=== PATIENT | female | born 1990 | race American Indian/Alaskan Native ===

== ENCOUNTER 2021-01-15 10:42 | Emergency (ER) | payer SELFPAY ==
--- NOTE | 2021-01-15 11:38 | Emergency Department Report ---
ED Female HPI - General Chief complaint: Urogenital-Female Stated complaint: VAGINAL RASH Time Seen by Provider: 01/15/21 11:31 Source: patient Mode of arrival: Ambulatory Limitations: No Limitations - History of Present Illness Initial comments: 30-year-old female presents to ED with vaginal discomfort x1 month. Patient reports some intermittent thick white discharge, intermittent itching intermittent swelling. Patient denies any swelling at this time. She also reports intermittent discomfort with urination over the last month as well. She denies any abdominal pain. Patient states she used [id number] medication for yeast infection. Patient thinks she may have bacterial vaginosis. States it is similar to when she was previously diagnosed with it. MD Complaint: other -: month(s) (1) Severity: mild Consistency: intermittent Improves with: none Worsens with: none Are you Now?: No Associated Symptoms: vaginal discharge. denies: vaginal bleeding, abdominal pain, nausea/vomiting, fever/chills - Related Data Sexually active: Yes Previous Rx's Medication Instructions Recorded Last Taken Type Fluconazole [Diflucan TAB] 150 mg PO ONCE #1 tablet 01/15/21 Unknown Rx metroNIDAZOLE [Flagyl] 500 mg PO Q12HR 7 Days #14 tab 01/15/21 Unknown Rx Allergies Allergy/AdvReac Type Severity Reaction Status Date / Time mayonnaise Allergy Swelling Verified 01/15/21 11:20 ED Review of Systems ROS: Stated complaint: VAGINAL RASH Other details as noted in HPI Comment: All other systems reviewed and negative Constitutional: denies: chills, fever Gastrointestinal: denies: abdominal pain Genitourinary: dysuria, discharge. denies: frequency, hematuria, dyspareunia ED Past Medical Hx - Past Medical History Previous Medical History?: No - Surgical History Past Surgical History?: No - Social History Smoking Status: Current Every Day Smoker Substance Use Type: Alcohol, Marijuana - Medications Home Medications: Home Medications Medication Instructions Recorded Confirmed Last Taken Type Fluconazole [Diflucan TAB] 150 mg PO ONCE #1 tablet 01/15/21 Unknown Rx metroNIDAZOLE [Flagyl] 500 mg PO Q12HR 7 Days #14 tab 01/15/21 Unknown Rx ED Physical Exam - General Limitations: No Limitations General appearance: alert, in no apparent distress - Head Head exam: Present: atraumatic, normocephalic - Eye Eye exam: Present: normal appearance, EOMI - ENT ENT exam: Present: mucous membranes moist - Neck Neck exam: Present: normal inspection - Respiratory Respiratory exam: Present: normal lung sounds bilaterally. Absent: respiratory distress - Cardiovascular Cardiovascular Exam: Present: regular rate, normal rhythm - GI/Abdominal GI/Abdominal exam: Present: soft. Absent: distended, tenderness - Speculum exam: Present: other (Patient deferred) - Extremities Exam Extremities exam: Present: normal inspection - Neurological Exam Neurological exam: Present: alert, oriented X3 - Psychiatric Psychiatric exam: Present: normal affect, normal mood - Skin Skin exam: Present: warm, dry, intact, normal color ED Course Vital Signs 01/15/21 01/15/21 11:19 12:14 Temperature 98.4 F Pulse Rate 72 74 Respiratory 16 16 Rate Blood Pressure 113/57 Blood Pressure 115/75 [Left] O2 Sat by Pulse 100 99 Oximetry ED Medical Decision Making - Medical Decision Making 30-year-old female presents to ED with vaginal discomfort and discharge. Patient deferred pelvic exam. She reports white discharge. States feels the same as when she had bacterial vaginosis previously. No evidence of UTI on UA. Will give prescription for Diflucan and Flagyl. Outpatient follow-up with [facility] advised. Return precautions given. - Differential Diagnosis UTI, vaginal candidiasis, bacterial vaginosis Critical care attestation.: If time is entered above; I have spent that time in minutes in the direct care of this critically ill patient, excluding procedure time. ED Disposition Clinical Impression: Vaginitis Disposition: 01 HOME / SELF CARE / HOMELESS Is pt being admited?: No Condition: Stable Instructions: Vaginitis, [id number], Bacterial Vaginosis, [id number] Prescriptions: Fluconazole [Diflucan TAB] 150 mg PO ONCE #1 tablet metroNIDAZOLE [Flagyl] 500 mg PO Q12HR 7 Days #14 tab Referrals: MARLON ISAACS MD [Staff Physician] - 3-5 Days Time of Disposition: 11:58
[2021-01-15 11:57] LABS: Bacteria,Urine 1+ /HPF (Negative); Bilirubin,Urine NEG (Negative); Blood,Urine NEG (Negative); Color,Urine Yellow (Yellow); Mucus,Urine FEW /HPF; Protein,Urine <15 mg/dL mg/dL (Negative); Urobilinogen,Urine < 2.0 mg/dL (<2.0)
[2021-01-15 11:58] LABS: HCG Qualitative,Urine Negative (Negative)
[2021-01-15 12:15] VITALS: BP 115/75
== END 2021-01-15 13:11 | disposition home or self-care (01) ==
LOC: ED 10:42
DX: N76.0 Acute vaginitis (principal); F17.200 Nicotine dependence, unspecified, uncomplicated; F12.90 Cannabis use, unspecified, uncomplicated; Z72.89 Other problems related to lifestyle; Z79.899 Other long term (current) drug therapy; Z88.8 Allergy status to other drugs, medicaments and biological substances
CPT/HCPCS: 81001; 81025; 99283

== ENCOUNTER 2021-08-31 12:26 | Emergency (ER) | payer SELFPAY | END 2021-08-31 15:00 | disposition left against medical advice (07) | LOC: ED 12:26 | DX: R00.2 Palpitations (principal); R06.02 Shortness of breath; Z53.21 Procedure and treatment not carried out due to patient leaving prior to being seen by health care provider ==